=== PATIENT | female | born 1980 | race Caucasian/White ===

== ENCOUNTER → 2019-03-23 | Outpatient (CLI) | payer OTHER ==
--- NOTE | 2019-03-24 07:51 | EKG ---
[place] [address] [facility] [place] [address] ELECTROCARDIOGRAM REPORT Name: MARTI DE LOS SANTOS Room #: REG ROSI Jimenez#: [id number] Admission: 03/23/19 Attend Phys: Physician not on staff Discharge: Date of : 80 Report #: [id number] THIS REPORT FOR: //name// [facility] Test Date: 2019-03-23 Test Time: 09:09:19 Pat Name: MARTI DE LOS SANTOS Department: Room: Gender: F [employer]: [place] HWANG : 1980 Requested By: Physician staff Order Number: [id number] MD: Maurizio Weinstein Measurements Intervals [place] Rate: 52 P: 44 MO: 150 QRS: -4 QRSD: 95 T: 18 QT: 418 QTc: 389 Interpretive Statements Sinus bradycardia Otherwise normal tracing No previous ECG available for comparison Electronically Signed On 03-24-2019 7:51:06 CDT by Maurizio Weinstein [email or web address] <ELECTRONICALLY SIGNED> By: Maurizio Weinstein MD, [facility] 03/24/19 [phone] Maurizio Weinstein MD, FACC /EPI
== END ==
LOC: CV 08:16
DX: R00.1 Bradycardia, unspecified (principal)